=== PATIENT | female | born 1955 | race Caucasian/White ===

== ENCOUNTER 2018-07-13 10:39 | Emergency (ER) | payer OTHER ==
--- NOTE | 2018-07-13 11:05 | ED ---
ED Suture/Wound Check - HPI Summary HPI Summary: This is scribe Garrett Peters documenting for attending Damian Bates MD. A 63 y/o female presents to ED c/o wound dehiscence. As per triage, "Pt c/o dehisced surgerical site in upper abd that is the size of an eraser". According to the patient, last week she noted that her wound dehiscence appeared. She bandaged it with AQUACEL and it was fine, however with the heat the past couple days, the area has been sweating a lot. She noted that because of the heat and sweating, the wound has become larger and she noted that it was bleeding. She does not feel any pain, however, does feel pinch and thinks the area is swelling and tender. Patient has extensive PMHx. PMHx of radical hysterectomy, debulking of eight tumors, open spot on liver, bowel resection in two areas and naval infection. 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 She is to start on new medication in the next month. Derrick Builder is Dr. Camp. Home health care assists her with bandaging wounds. I, Dr. Bates, personally performed the services described in this documentation as scribed in my presence and it is both accurate and complete. - History Of Current Complaint Chief Complaint: EDGeneral Stated Complaint: SURGERY COMPLICATION Time Seen by Provider: 07/13/18 10:59 Hx Obtained From: Patient Onset/Duration: Sudden Onset, Lasting Days, Still Present, Worse Since Surgical Site: infraumbilical Pain Intensity: 0 Pain Scale Used: 0-10 Numeric - Allergies/Home Medications Allergies/Adverse Reactions: Allergies Allergy/AdvReac Type Severity Reaction Status Date / Time paclitaxel Allergy Anaphylatic Verified 07/13/18 10:59 Shock Home Medications: Home Medications Aspir-Low 81 mg PO DAILY 07/13/18 [History Confirmed 07/13/18] D3-2000 2 tab PO DAILY 07/13/18 [History Confirmed 07/13/18] Magnesium 500 mg PO TID 07/13/18 [History Confirmed 07/13/18] Multivit with Calcium,Iron,Min 1 cap PO DAILY 07/13/18 [History Confirmed ] Nexium 20 mg PO BID 07/13/18 [History Confirmed 07/13/18] Stress B with Zinc Tablet 1 cap PO DAILY 07/13/18 [History Confirmed 07/13/18] Tamoxifen Citrate 80 mg PO BID 07/13/18 [History Confirmed 07/13/18] PMH/Surg Hx/FS Hx/Imm Hx Endocrine/Hematology History: Denies: Hx Diabetes Cardiovascular History: Denies: Hx Hypertension Infectious Disease History: No Infectious Disease History: Denies: Traveled Outside the [place] in Last 30 Days - Family History Known Family History: Positive: Hypertension - Mother Negative: Diabetes - Social History Alcohol Use: None Substance Use Type: Reports: None Smoking Status (MU): Never Smoked Tobacco Review of Systems Negative: Fever Skin: Other - POSITIVE: Swelling and tenderness of wound dehiscence. All Other Systems Reviewed And Are Negative: Yes Physical Exam - Summary Physical Exam Summary: Appearance: The patient is well-nourished in no acute distress and in no acute pain. Skin: Open area infraumbilical, looks clean, looks non-tender. HEENT: The head is normocephalic and atraumatic. The pupils are equal and reactive. The conjunctivae are clear and without drainage. Nares are patent and without drainage. Mouth reveals moist mucous membranes and the throat is without erythema and exudate. The external ears are intact. The ear canals are patent and without drainage. The tympanic membranes are intact. Neck: The neck is supple with full range of motion and non-tender. There are no carotid bruits. There is no neck vein distension. Respiratory: Chest is non-tender. Lungs are clear to auscultation and breath sounds are symmetrical and equal. Cardiovascular: Heart is regular rate and rhythm. There is no murmur or rub auscultated. There is no peripheral edema and pulses are symmetrical and equal. Abdomen: The abdomen is soft and non-tender. There are normal bowel sounds heard in all four quadrants and there is no organomegaly palpated. Musculoskeletal: There is no back tenderness noted. Extremities are non-tender with full range of motion. There is good capillary refill. There is no peripheral edema or calf tenderness elicited. Neurological: Patient is alert and oriented to person, place and time. The patient has symmetrical motor strength in all four extremities. Cranial nerves are grossly intact. Deep tendon reflexes are symmetrical and equal in all four extremities. Psychiatric: The patient has an appropriate affect and does not exhibit any anxiety or depression. Triage Information Reviewed: Yes Vital Signs On Initial Exam: Initial Vitals Temp Pulse Resp BP Pulse Ox 98.0 F 67 16 153/69 98 07/13/18 10:45 07/13/18 10:45 07/13/18 10:45 07/13/18 10:45 07/13/18 10:45 Vital Signs Reviewed: Yes Diagnostics - Vital Signs Vital Signs Temp Pulse Resp BP Pulse Ox 07/13/18 10:45 98.0 F 67 16 153/69 98 - Laboratory Result Diagrams: 07/13/18 11:21 07/13/18 11:21 Lab Statement: Any lab studies that have been ordered have been reviewed, and results considered in the medical decision making process. - CT CT A/P CT Interpretation Completed By: Radiologist - 1. FINDINGS MOST CONSISTENT WITH A MODERATE GRADE PARTIAL DISTAL SMALL BOWEL OBSTRUCTION. 2. SMALL FLUID COLLECTION IN THE ANTERIOR ABDOMINAL WALL IN THE REGION OF PRIOR SURGERY CONSISTENT WITH A SMALL HEMATOMA, SEROMA OR ABSCESS. 3. POSTSURGICAL CHANGES IN THE SMALL BOWEL. 4. HEPATIC STEATOSIS. 5. STATUS POST HYSTERECTOMY. 6. 1.5 CM SCLEROTIC LESION WITHIN THE T12 VERTEBRAL BODY. ED physician reviewed this radiology report. Course/Dx - Course Course Of Treatment: Ms. Urias presented with a slight dehiscence of the inferior portion of her midline abdominal incision. She has had multiple problems with this in the past but is not experiencing much pain or discomfort at this time. Her labs are within normal limits as were her vitals. CT was obtained which showed a small possibly 1 cm x 1.5 cm area of fluid collection which could represent hematoma, seroma or abscess. At this point I think wound care as appropriate and she will be going back to see her M.D.'s in a few weeks. - Clinical Impression Provider Diagnoses: Wound dehiscence Discharge - Sign-Out/Discharge Documenting (check all that apply): Patient Departure - DISCHARGE - Discharge Plan Condition: Stable Disposition: HOME Prescriptions: Silver/Foam Bandage [Aquacel Ag Foam 3.2"X3.2" Drs] 1 each TRANSDERM Q72HR #7 bandage Patient Education Materials: Wound Dehiscence (ED) Referrals: [facility] [Outside] - 3 Days Additional Instructions: FOLLOW UP WITH PRIMARY CARE OR [facility] IN 2-3 DAYS. RETURN TO ED FOR ANY NEW OR WORSENING SYMPTOMS. - Billing Disposition and Condition Condition: STABLE Disposition: Home
[2018-07-13 11:35] LABS: Hematocrit 31 % (35-47); Hemoglobin 10.3 g/dl (12.0-16.0); Mean Corpuscular HGB Conc 34 g/dl (31-36); Mean Corpuscular Hemoglobin 33 pg (27-31); Mean Corpuscular Volume 99 fL (80-97); Mean Platelet Volume 7.4 um3 (7.4-10.4); Platelet Count 176 10^3/ul (150-450); Red Blood Count 3.08 10^6/ul (4.00-5.40); Red Cell Distribution Width 17 % (10.5-15); White Blood Count 3.5 10^3/ul (3.5-10.8)
[2018-07-13 11:48] LABS: ABS Basophils 0 10^3/ul (0-0.2); ABS Eosinophils 0 10^3/ul (0-0.6); ABS Monocytes 0.3 10^3/ul (0-0.8); ABS Neutrophils 2.2 10^3/ul (1.5-7.7); ABS Nucleated RBC 0 10^3/ul; Eosinophil % 1.1 % (0-6); Lymphocyte % 27.2 % (25-47); Nucleated Red Blood Cells % 0
[2018-07-13 11:51] LABS: EGFR Non-African American 47.8 (>60)
[2018-07-13] MEDS ORDERED: Iodixanol* (CONTRAST) 320 MG/ML 100 ML SDV IV ONE (12:58)
--- NOTE | 2018-07-13 15:09 | RAD ---
INDICATION: Wound dehiscence. COMPARISON: There are no prior studies available for comparison. TECHNIQUE: A CT scan of the abdomen and pelvis was performed with intravenous and without oral contrast following intravenous injection of 100 ml of Visipaque 320 nonionic contrast. Contiguous axial sections were obtained from the lung bases through the symphysis pubis. Images were reconstructed in the coronal and sagittal planes. FINDINGS: The lung bases are clear. No pleural effusion is present. The liver and spleen are normal in size without significant focal abnormality. The liver is decreased in attenuation consistent with fatty infiltration. No calcified gallstones are seen. The pancreas appears to be within normal limits. The kidneys and adrenal glands are normal in size. No hydronephrosis is seen. No significant focal renal abnormality is seen. The aorta is normal in caliber with mild calcific plaque present. No significant enlarged retroperitoneal lymph nodes are seen. Evaluation of the bowel is limited on this nonoral contrast study. The stomach and proximal small bowel is nondistended. There appear to be to an 2 areas of anastomotic suture lines within the distal small bowel. The distal small bowel is moderately distended. There appears to be a transition point at the more inferior anastomotic suture line most consistent with a partial small bowel obstruction. The colon is nondistended. The appendix is not well-defined although there is no evidence for appendicitis. There is mild descending and sigmoid diverticulosis without evidence for diverticulitis. The patient is status post hysterectomy. No free intraperitoneal air or fluid is seen. There are areas of increased density in the subcutaneous tissues in the midline in the anterior abdominal wall most consistent with postsurgical scarring. In the region of postsurgical changes there is a small 1.6 x 1.0 cm fluid density area present in the midline in the periumbilical region just anterior to the rectus abdominis muscles most consistent with a small hematoma, seroma or abscess. There is a 1.1 x 1.5 cm sclerotic lesion within the T12 vertebra. No other focal osseous abnormalities are seen. IMPRESSION: 1. FINDINGS MOST CONSISTENT WITH A MODERATE GRADE PARTIAL DISTAL SMALL BOWEL OBSTRUCTION. 2. SMALL FLUID COLLECTION IN THE ANTERIOR ABDOMINAL WALL IN THE REGION OF PRIOR SURGERY CONSISTENT WITH A SMALL HEMATOMA, SEROMA OR ABSCESS. 3. POSTSURGICAL CHANGES IN THE SMALL BOWEL. 4. HEPATIC STEATOSIS. 5. STATUS POST HYSTERECTOMY. 6. 1.5 CM SCLEROTIC LESION WITHIN THE T12 VERTEBRAL BODY.
[2018-07-13 16:10] VITALS: BP 132/72
== END 2018-07-13 16:09 | disposition home or self-care (01) ==
LOC: ED 10:39
DX: T81.31XA Disruption of external operation (surgical) wound, not elsewhere classified, initial encounter (principal); Z88.8 Allergy status to other drugs, medicaments and biological substances; K76.0 Fatty (change of) liver, not elsewhere classified; Z90.710 Acquired absence of both cervix and uterus
CPT/HCPCS: 36415; 74177; 80053; 85025; 86140; 99284; Q9967